=== PATIENT | female | born 1955 | race Caucasian/White ===

== ENCOUNTER 2017-12-31 08:09 | Inpatient (IN) | payer OTHER ==
[~2017-12-31] VITALS: Ht 172.7 cm; Wt 61.3 kg
[2017-12-31 08:32] LABS: HEMATOCRIT 41.4 % (36.0-46.0); HEMOGLOBIN 14.1 G/DL (11.9-15.5); MCH 32.2 PG (29.0-34.0); MCHC 34.1 G/DL (30.0-36.0); MCV 94.5 FL (83-99); PLATELET COUNT 449 K/uL (156-360); RBC DIS.WIDTH-CV 14.1 % (11.8-14.6); RBC DIS.WIDTH-SD 49.4 % (39-53); RED BLOOD COUNT 4.38 M/uL (3.80-5.20); WHITE BLOOD COUNT 12.3 K/uL (4.1-10.2)
[2017-12-31 09:07] LABS: ALBUMIN 3.7 G/DL (3.2-4.8); ALKALINE PHOSPHATASE 73 IU/L (3-129); ALT (GPT) 25 IU/L (3-49); AST (GOT) 33 IU/L (2-34); CHLORIDE 101 MEQ/L (99-109); CREATININE 0.7 MG/DL (0.6-1.3); GFR ESTIMATE (CALCULATED) > 59 mL/min/; GLUCOSE 118 mg/dL (70-99); POTASSIUM 4.4 MEQ/L (3.7-5.4); SODIUM 137 MEQ/L (136-147); TOTAL BILIRUBIN 0.3 MG/DL (0.0-1.0); TOTAL PROTEIN 7.5 G/DL (6.4-8.3); UREA NITROGEN (BUN) 10 mg/dL (9-23)
[2017-12-31 10:09] LABS: APPEARANCE SL.HAZY ((CLEAR)); BILIRUBIN NEGATIVE; BLOOD NEGATIVE; COLOR YELLOW ((YELLOW)); GLUCOSE (STRIP) NEGATIVE; KETONES 20; LEUKOCYTES SMALL; NITRITE NEGATIVE; PROTEIN (STRIP) NEGATIVE; SPECIFIC GRAVITY 1.027 (1.000-1.030)
[2017-12-31 10:13] LABS: BACTERIA NONE SEEN /HPF; CALCIUM OXALATE CRYSTALS 3+ /HPF; EPITHELIAL CELLS RARE /HPF; HYALINE CASTS 0-5 /LPF; MUCUS TRACE /LPF; RED BLOOD CELLS NONE SEEN /HPF (0-5); UCUL ADDED? NO; WHITE BLOOD CELLS 0-5 /HPF (0-5)
[2017-12-31] MEDS ORDERED: AMITRIPTYLINE H25 MG PO (12:11)
[2017-12-31] MEDS ORDERED: TYLENOL EXTRA500 MG PO (12:12)
[2017-12-31] MEDS ORDERED: TRAMADOL HCL50 MG PO (12:12)
[2017-12-31 15:15] VITALS: BP 144/65
[2017-12-31 19:25] VITALS: BP 112/62
[2017-12-31 23:45] VITALS: BP 111/60
[2018-01-01 03:52] VITALS: BP 102/51
[2018-01-01 07:10] LABS: HEMATOCRIT 35.8 % (36.0-46.0); MCH 31.8 PG (29.0-34.0); MCHC 33.5 G/DL (30.0-36.0); PLATELET COUNT 415 K/uL (156-360); RBC DIS.WIDTH-CV 14.4 % (11.8-14.6); RED BLOOD COUNT 3.77 M/uL (3.80-5.20); WHITE BLOOD COUNT 9.7 K/uL (4.1-10.2)
[2018-01-01 07:20] LABS: CHLORIDE 105 MEQ/L (99-109); CREATININE 0.6 MG/DL (0.6-1.3); GFR ESTIMATE (CALCULATED) > 59 mL/min/; GLUCOSE 120 mg/dL (70-99); POTASSIUM 4.1 MEQ/L (3.7-5.4); SODIUM 139 MEQ/L (136-147); UREA NITROGEN (BUN) 4 mg/dL (9-23)
[2018-01-01 07:58] VITALS: BP 144/67
[2018-01-01 11:16] VITALS: BP 130/73
[2018-01-01 15:11] VITALS: BP 127/66
[2018-01-01 20:02] VITALS: BP 123/66
[2018-01-01 23:09] VITALS: BP 102/62
[2018-01-02 04:07] VITALS: BP 104/60
[2018-01-02 07:21] LABS: BASOPHIL (%) 0.5 % (0-1); BASOPHIL COUNT 0.1 K/uL (0-0.1); EOSINOPHIL (%) 0.4 % (0-5); HEMATOCRIT 37.1 % (36.0-46.0); HEMOGLOBIN 12.1 G/DL (11.9-15.5); IMMATURE GRANULOCYTE (%) 0.5 % (0.0-0.7); LYMPHOCYTE (%) 19.9 % (15-42); LYMPHOCYTE COUNT 1.9 K/uL (1.0-2.8); MCH 31.3 PG (29.0-34.0); MCHC 32.6 G/DL (30.0-36.0); MCV 96.1 FL (83-99); MONOCYTE (%) 8.3 % (3-12); MONOCYTE COUNT 0.8 K/uL (0-0.8); NEUTROPHIL (%) 70.4 % (45-76); NEUTROPHIL COUNT 6.7 K/uL (1.8-6.4); PLATELET COUNT 438 K/uL (156-360); RBC DIS.WIDTH-CV 14.5 % (11.8-14.6); RBC DIS.WIDTH-SD 51.2 % (39-53); RED BLOOD COUNT 3.86 M/uL (3.80-5.20); WHITE BLOOD COUNT 9.5 K/uL (4.1-10.2)
[2018-01-02 07:40] LABS: CHLORIDE 106 MEQ/L (99-109); CREATININE 0.6 MG/DL (0.6-1.3); GFR ESTIMATE (CALCULATED) > 59 mL/min/; GLUCOSE 105 mg/dL (70-99); POTASSIUM 4.5 MEQ/L (3.7-5.4); SODIUM 142 MEQ/L (136-147); UREA NITROGEN (BUN) 2 mg/dL (9-23)
[2018-01-02 08:01] VITALS: BP 114/63
[2018-01-02 14:57] LABS: BASOPHIL (%) 0.2 % (0-1); EOSINOPHIL (%) 0.1 % (0-5); HEMATOCRIT 34.9 % (36.0-46.0); HEMOGLOBIN 11.2 G/DL (11.9-15.5); IMMATURE GRANULOCYTE (%) 0.6 % (0.0-0.7); LYMPHOCYTE (%) 5.5 % (15-42); LYMPHOCYTE COUNT 1.1 K/uL (1.0-2.8); MCH 31.2 PG (29.0-34.0); MCHC 32.1 G/DL (30.0-36.0); MCV 97.2 FL (83-99); MONOCYTE (%) 2.1 % (3-12); MONOCYTE COUNT 0.4 K/uL (0-0.8); NEUTROPHIL (%) 91.5 % (45-76); NEUTROPHIL COUNT 17.5 K/uL (1.8-6.4); PLATELET COUNT 420 K/uL (156-360); RBC DIS.WIDTH-CV 14.6 % (11.8-14.6); RBC DIS.WIDTH-SD 52.2 % (39-53); RED BLOOD COUNT 3.59 M/uL (3.80-5.20); WHITE BLOOD COUNT 19.1 K/uL (4.1-10.2)
[2018-01-02 15:50] VITALS: BP 99/50
[2018-01-02 20:14] VITALS: BP 97/53
[2018-01-02 23:47] VITALS: BP 103/59
[2018-01-03 04:22] VITALS: BP 98/52
[2018-01-03 07:00] LABS: HEMATOCRIT 34.2 % (36.0-46.0); HEMOGLOBIN 10.8 G/DL (11.9-15.5); MCH 30.6 PG (29.0-34.0); MCHC 31.6 G/DL (30.0-36.0); MCV 96.9 FL (83-99); PLATELET COUNT 417 K/uL (156-360); RBC DIS.WIDTH-CV 14.4 % (11.8-14.6); RBC DIS.WIDTH-SD 51.3 % (39-53); RED BLOOD COUNT 3.53 M/uL (3.80-5.20); WHITE BLOOD COUNT 15.4 K/uL (4.1-10.2)
[2018-01-03 07:26] LABS: CHLORIDE 106 MEQ/L (99-109); CREATININE 0.6 MG/DL (0.6-1.3); GFR ESTIMATE (CALCULATED) > 59 mL/min/; POTASSIUM 4.5 MEQ/L (3.7-5.4); SODIUM 140 MEQ/L (136-147); UREA NITROGEN (BUN) 4 mg/dL (9-23)
[2018-01-03 07:27] LABS: GLUCOSE 191 mg/dL (70-99)
[2018-01-03 08:03] VITALS: BP 98/51
[2018-01-03 11:53] VITALS: BP 107/52
[2018-01-03 15:40] VITALS: BP 114/58
[2018-01-03 19:47] VITALS: BP 117/58
[2018-01-04] VITALS: BP 114/56
[2018-01-04 04:06] VITALS: BP 118/64
[2018-01-04 07:33] LABS: HEMOGLOBIN 11.4 G/DL (11.9-15.5); MCH 30.8 PG (29.0-34.0); MCHC 31.7 G/DL (30.0-36.0); MCV 97.3 FL (83-99); PLATELET COUNT 440 K/uL (156-360); RBC DIS.WIDTH-CV 14.4 % (11.8-14.6); RBC DIS.WIDTH-SD 51.9 % (39-53); WHITE BLOOD COUNT 10.6 K/uL (4.1-10.2)
[2018-01-04 07:47] LABS: CHLORIDE 106 MEQ/L (99-109); CREATININE 0.5 MG/DL (0.6-1.3); GFR ESTIMATE (CALCULATED) > 59 mL/min/; GLUCOSE 139 mg/dL (70-99); POTASSIUM 4.3 MEQ/L (3.7-5.4); SODIUM 140 MEQ/L (136-147); UREA NITROGEN (BUN) 3 mg/dL (9-23)
[2018-01-04 08:54] VITALS: BP 123/68
[2018-01-04 12:10] VITALS: BP 133/64
[2018-01-04 16:16] VITALS: BP 131/69
[2018-01-04 20:08] VITALS: BP 139/74
[2018-01-05 00:15] VITALS: BP 140/73
[2018-01-05 04:14] VITALS: BP 132/66
[2018-01-05 06:26] LABS: HEMATOCRIT 31.9 % (36.0-46.0); HEMOGLOBIN 10.3 G/DL (11.9-15.5); MCH 30.8 PG (29.0-34.0); MCHC 32.3 G/DL (30.0-36.0); MCV 95.5 FL (83-99); PLATELET COUNT 386 K/uL (156-360); RBC DIS.WIDTH-CV 14.2 % (11.8-14.6); RBC DIS.WIDTH-SD 50.2 % (39-53); RED BLOOD COUNT 3.34 M/uL (3.80-5.20); WHITE BLOOD COUNT 6.9 K/uL (4.1-10.2)
[2018-01-05 06:54] LABS: CHLORIDE 107 MEQ/L (99-109); CREATININE 0.5 MG/DL (0.6-1.3); GFR ESTIMATE (CALCULATED) > 59 mL/min/; GLUCOSE 117 mg/dL (70-99); POTASSIUM 4.1 MEQ/L (3.7-5.4); SODIUM 141 MEQ/L (136-147); UREA NITROGEN (BUN) 3 mg/dL (9-23)
[2018-01-05 07:51] VITALS: BP 141/78
[2018-01-05 16:22] VITALS: BP 146/65
[2018-01-05] MEDS ORDERED: FLAGYL500 MG PO ×2 (17:00→17:10)
[2018-01-05] MEDS ORDERED: BACTRIM,SEPT1 TABLET PO ×2 (17:00→17:10)
== END 2018-01-05 18:12 | disposition home or self-care (01) | DRG 331 ==
LOC: EME 08:09 → EDOF 12:26 → 2EASTP 12:26 → ENRESERV 12:27 → 2EASTP 14:52
PROVIDERS: Nurse Practitioner Family; Physician Assistant; Surgery
PROC: 0DBB0ZZ Excision of Ileum, Open Approach (ICD-10-PCS; principal; 2018-01-02)
PROC: 0W9G4ZZ Drainage of Peritoneal Cavity, Percutaneous Endoscopic Approach (ICD-10-PCS; principal; 2018-01-02)
PROC: 0DTF0ZZ Resection of Right Large Intestine, Open Approach (ICD-10-PCS; principal; 2018-01-02)
DX: K35.3 Acute appendicitis with localized peritonitis (principal); Z53.31 Laparoscopic surgical procedure converted to open procedure; D72.829 Elevated white blood cell count, unspecified; D64.9 Anemia, unspecified; G47.00 Insomnia, unspecified; M19.90 Unspecified osteoarthritis, unspecified site; G43.909 Migraine, unspecified, not intractable, without status migrainosus; K21.9 Gastro-esophageal reflux disease without esophagitis; Z85.42 Personal history of malignant neoplasm of other parts of uterus
CPT/HCPCS: 71045; 72194; 74177; 80048; 80053; 80200; 81003; 85025; 85025 91; 85027; 87070; 87075; 87076; 87185; 87205; 88307; 93005; 99281; 99284; J0131; J0330; J1100; J1170; J1650; J1885; J2405; J2543; J2710; J3010; J3260; J7030; J7050; J7120; J7643